=== PATIENT | female | born 1960 | race Two or more races ===

== ENCOUNTER 2022-08-02 15:18 | Emergency (ER) | payer MEDICAID, OTHER ==
[~2022-08-02] VITALS: Ht 157.5 cm; Wt 85.0 kg
[2022-08-02 16:07] VITALS: BP 142/88
[2022-08-02] MEDS ORDERED: LEVO150T10 PO (16:24)
== END 2022-08-02 18:10 | disposition home or self-care (01) ==
LOC: ER 15:18
DX: E03.9 Hypothyroidism, unspecified (principal); Z79.899 Other long term (current) drug therapy

== ENCOUNTER 2022-11-26 11:03 | Emergency (ER) | payer MEDICAID ==
[~2022-11-26] VITALS: Ht 157.5 cm; Wt 81.7 kg
[~2022-11-26 11:03] MED LIST: LEVO150T10 PO
[2022-11-26] MEDS ORDERED: LEVO150T10 PO (13:37)
[2022-11-26 13:52] VITALS: BP 145/92
== END 2022-11-26 13:49 | disposition home or self-care (01) ==
LOC: ER 11:03
DX: Z76.0 Encounter for issue of repeat prescription (principal)

== ENCOUNTER 2022-12-21 14:14 | Emergency (ER) | payer MEDICAID ==
[~2022-12-21] VITALS: Ht 157.5 cm; Wt 79.3 kg
[2022-12-21 16:53] VITALS: BP 117/63
[2022-12-21] MEDS ORDERED: methylPREDNISolone SOD SUCC 125 MG/2 ML VL IM ONE (17:00)
[2022-12-21] MEDS ORDERED: EPINEPHrine HCL 1 MG/1 ML AMP SC ONE (17:00)
[2022-12-21] MEDS ORDERED: PRED20TA2 PO (17:48)
[2022-12-21] MEDS ORDERED: HYDR50CA PO (17:48)
== END 2022-12-21 17:49 | disposition home or self-care (01) ==
LOC: ER 14:14
DX: T78.40XA Allergy, unspecified, initial encounter (principal); J45.909 Unspecified asthma, uncomplicated; Z88.1 Allergy status to other antibiotic agents; X58.XXXA Exposure to other specified factors, initial encounter
CPT/HCPCS: 96372; 99284; J0171; J2930